=== PATIENT | male | born 1975 | race Caucasian/White ===

== ENCOUNTER 2017-05-21 10:38 | Emergency (ER) | payer OTHER ==
[~2017-05-21] VITALS: Ht 198.1 cm; Wt 127.0 kg
[2017-05-21 14:14] LABS: CHLORIDE 107 mEq/L (99-109); POTASSIUM 3.4 mEq/L (3.7-5.4); SODIUM 138 mEq/L (136-147)
[2017-05-21 14:16] LABS: GLUCOSE 96 mg/dL (70-99)
[2017-05-21 14:17] LABS: ANION GAP 11 MEQ/L (2-14)
[2017-05-21 14:19] LABS: GFR ESTIMATE (CALCULATED) > 59 mL/min/
[2017-05-21 14:20] LABS: UREA NITROGEN (BUN) 12 mg/dL (9-23)
[2017-05-21 14:22] LABS: CREATINE KINASE 554 IU/L (1-294)
[2017-05-21 15:12] VITALS: BP 160/101
== END 2017-05-21 15:13 | disposition home or self-care (01) ==
LOC: EME 10:38
PROVIDERS: Physician Assistant
DX: B34.9 Viral infection, unspecified (principal); R74.8 Abnormal levels of other serum enzymes; F17.200 Nicotine dependence, unspecified, uncomplicated
CPT/HCPCS: 80048; 82550; 99281; 99283; J7030